=== PATIENT | female | born 1960 | race African-American/Black ===

== ENCOUNTER 2017-03-15 23:58 | Inpatient (IN) | payer OTHER, MEDICAID ==
[~2017-03-15] VITALS: Ht 160 cm; Wt 96.2 kg
[2017-03-16] MEDS ORDERED: ONDANSETRON HCL 4MG/2ML VIAL IV STA (00:43)
[2017-03-16] MEDS ORDERED: SODIUM CHLORIDE 0.9% 1,000 ML IV ONE (00:43)
[2017-03-16] MEDS ORDERED: LORAZEPAM 2MG/ML CPJ IV ONE (00:45)
[2017-03-16] MEDS ORDERED: LEVETIRACETAM 500MG PREMIX 100 ML IV ONE (00:45)
[2017-03-16 02:30] LABS: BASOPHILS % 0.5 % (0.0-2.0); EOSINOPHILS % 0.2 % (0.0-5.0); HEMOGLOBIN. 14.5 g/dL (12.0-16.0); LYMPHOCYTES % 16.9 % (20.0-50.0); MEAN CORPUSCULAR HEMOGLOBIN 27.6 pg (28.0-32.0); MEAN CORPUSCULAR VOLUME 84.1 fL (81.0-99.0); MONOCYTES % 3.5 % (2.0-8.0); NEUTROPHILS % 78.9 % (40.0-76.0); RED BLOOD CELL COUNT 5.24 mill/uL (4.2-5.4); RED CELL DISTRIBUTION WIDTH 17.5 % (11.6-14.6)
[2017-03-16 02:51] LABS: CARBON DIOXIDE 26 mEq/L (21-32); CHLORIDE 107 mEq/L (98-107); ETHANOL BLOOD < 10 mg/dL; TROPONIN I < 0.02 ng/mL (0.00-0.04)
[2017-03-16 03:07] LABS: MEAN PLATELET VOLUME 9.7 fl (7.4-10.4); PLATELET 218 x1000/uL (130-400)
[2017-03-16 04:00] LABS: BG BASE EXCESS -0.5 mmol/L (-2.0-2.0); BG CARBOXYHEMOGLOBIN 0.6 % (0.5-1.5); BG DEOXYHEMOGLOBIN 1.5 % (0.0-5.0); BG FRACTION INSPIRED OXYGEN 28; BG HCO3 ACT 24.1 mmol/L (22.0-26.0); BG METHEMOGLOBIN 0.3 % (0.0-1.5); BG OXYGEN SATURATION 98.5 % (92.0-98.5); BG OXYHEMOGLOBIN 97.6 % (94.0-97.0); BG PCO2 39.6 mmHg (35.0-45.0); BG PH 7.403 (7.350-7.450); BG PO2 118.6 mmHg (75.0-100.0); BG SAMPLE SITE LEFT RADIAL; BG TOTAL HEMOGLOBIN 14.3 g/dL (12.0-18.0); BG VENT MODE NASAL CANNULA
[2017-03-16 04:25] LABS: *AMPHETAMINES SCREEN URINE NEGATIVE (NEGATIVE); *BARBITURATES SCREEN URINE NEGATIVE (NEGATIVE); *BENZODIAZEPINES SCREEN URINE NEGATIVE (NEGATIVE); *COCAINE SCREEN URINE NEGATIVE (NEGATIVE); CANNABINOID URINE SCREEN NEGATIVE (NEGATIVE); METHADONE URINE SCREEN NEGATIVE (NEGATIVE); OPIATES URINE SCREEN NEGATIVE (NEGATIVE); PHENCYCLIDINE URINE SCREEN NEGATIVE (NEGATIVE)
[2017-03-16] MEDS ORDERED: SODIUM CHLORIDE 0.9% 1,000 ML IV SCH (05:43)
[2017-03-16] MEDS ORDERED: ACETAMINOPHEN 325MG TABLET PO PRN ×2 (05:45→12:45)
[2017-03-16] MEDS ORDERED: IBUPROFEN 600MG TABLET PO PRN (05:45)
[2017-03-16 09:15] VITALS: BP 134/86
[2017-03-16] MEDS ORDERED: BACL-141 PO (10:43)
[2017-03-16] MEDS ORDERED: OMEP20CA10 PO (10:43)
[2017-03-16] MEDS ORDERED: AMLO10TA80 PO (10:43)
[2017-03-16] MEDS ORDERED: HYDR12.54 PO (10:43)
[2017-03-16] MEDS ORDERED: ASPI-1159 PO (10:43)
[2017-03-16] MEDS ORDERED: HYDR-519 PO (10:43)
[2017-03-16] MEDS ORDERED: LAM15 PO (10:43)
[2017-03-16 12:00] VITALS: BP 138/74
[2017-03-16] MEDS ORDERED: CETI10TA6 PO (12:17)
[2017-03-16] MEDS ORDERED: ONDA4SOL2 PO (12:17)
[2017-03-16] MEDS ORDERED: TRIA1TAB94 PO (12:17)
[2017-03-16] MEDS ORDERED: IPRATROPIUM/ALBUTEROL 0.5-3(2.5)MG/3ML NEB INH PRN (12:45)
[2017-03-16] MEDS ORDERED: CLONIDINE 0.1MG TABLET PO PRN (12:45)
[2017-03-16] MEDS ORDERED: LORAZEPAM 2MG/ML CPJ IV PRN (12:45)
[2017-03-16] MEDS ORDERED: DIPHENHYDRAMINE 50MG/ML VIAL IV PRN (12:45)
[2017-03-16] MEDS ORDERED: ONDANSETRON HCL 4MG/2ML VIAL IV PRN (12:45)
[2017-03-16] MEDS ORDERED: ONDANSETRON HCL 4MG TABLET PO PRN (13:30)
[2017-03-16] MEDS ORDERED: ACETAMINOPHEN 650MG/20.3ML UDC PO PRN (13:30)
[2017-03-16] MEDS: CETIRIZINE 10MG TABLET PO SCH ×2 (13:30→17:06)
[2017-03-16] MEDS: TRIAMTERENE/HYDROCHLOROTHIAZIDE 37.5/25MG CAPSULE PO SCH (13:47)
[2017-03-16] MEDS: BACLOFEN 10MG TABLET PO SCH ×2 (13:47→21:14)
[2017-03-16] MEDS: AMLODIPINE 10MG TABLET PO SCH (13:47)
[2017-03-16] MEDS ORDERED: NON FORMULARY PATIENT HOME MED EA XX SCH ×2 (15:45→21:00)
[2017-03-16 16:00] VITALS: BP 140/77
[2017-03-16] MEDS: LACOSAMIDE 200 MG TABLET (VIMPAT) PO SCH (17:06)
[2017-03-16 20:00] VITALS: BP 161/80
[2017-03-16 20:19] LABS: CLARITY URINE CLOUDY (CLEAR); COLOR URINE YELLOW (YELLOW); GLUCOSE URINE NEGATIVE (NEGATIVE); KETONES URINE NEGATIVE (NEGATIVE); LEUKOCYTE ESTERASE URINE NEGATIVE (NEGATIVE); NITRITE URINE NEGATIVE (NEGATIVE); OCCULT BLOOD URINE NEGATIVE (NEGATIVE); PH URINE 5.5 (4.5-8.0); PROTEIN URINE NEGATIVE (NEGATIVE); SPECIFIC GRAVITY URINE 1.017 (1.005-1.030); UROBILINOGEN URINE 0.2 E.U./dL (0.2-1.0)
[2017-03-16] MEDS ORDERED: LEVETIRACETAM 500MG/5ML CUP PO SCH (21:00)
[2017-03-16] MEDS: LEVETIRACETAM 500MG/5ML CUP PO SCH (21:00)
[2017-03-16] MEDS ORDERED: LACOSAMIDE 200 MG TABLET (VIMPAT) PO NR (21:00)
[2017-03-17] VITALS: BP 121/74
[2017-03-17 04:00] VITALS: BP 135/65
[2017-03-17] MEDS: HYDROCODONE/ACETAMINOPHEN 5/325MG TABLET PO PRN ×2 (04:02→08:53)
[2017-03-17] MEDS: BACLOFEN 10MG TABLET PO SCH ×3 (06:10→22:15)
[2017-03-17] MEDS: HYDROCHLOROTHIAZIDE 25MG TABLET PO SCH (06:10)
[2017-03-17 06:18] LABS: BASOPHILS % 0.2 % (0.0-2.0); EOSINOPHILS % 1.2 % (0.0-5.0); HEMATOCRIT. 37.7 % (36.0-48.0); HEMOGLOBIN. 12.4 g/dL (12.0-16.0); LYMPHOCYTES % 29.1 % (20.0-50.0); MEAN CORPUSCULAR HEMOGLOBIN 27.4 pg (28.0-32.0); MEAN CORPUSCULAR VOLUME 83.5 fL (81.0-99.0); MEAN PLATELET VOLUME 9.4 fl (7.4-10.4); MONOCYTES % 7.8 % (2.0-8.0); NEUTROPHILS % 61.7 % (40.0-76.0); PLATELET 173 x1000/uL (130-400); RED BLOOD CELL COUNT 4.51 mill/uL (4.2-5.4); RED CELL DISTRIBUTION WIDTH 17.6 % (11.6-14.6)
[2017-03-17 06:40] LABS: CHLORIDE 102 mEq/L (98-107)
[2017-03-17 06:47] LABS: CARBON DIOXIDE 27 mEq/L (21-32); HDL CHOLESTEROL 42 mg/dL (40-59); LDL CHOLESTEROL 88 mg/dL (5-100)
[2017-03-17 08:00] VITALS: BP 148/58
[2017-03-17] MEDS: LACOSAMIDE 200 MG TABLET (VIMPAT) PO SCH ×2 (08:52→16:23)
[2017-03-17] MEDS: ASPIRIN 81MG EC TABLET PO SCH (09:00)
[2017-03-17] MEDS: AMLODIPINE 10MG TABLET PO SCH (09:00)
[2017-03-17] MEDS: LEVETIRACETAM 500MG/5ML CUP PO SCH ×2 (09:58→16:24)
[2017-03-17] MEDS: TRIAMTERENE/HYDROCHLOROTHIAZIDE 37.5/25MG CAPSULE PO SCH (10:00)
[2017-03-17 12:00] VITALS: BP 137/72
[2017-03-17 16:00] VITALS: BP 139/75
[2017-03-17 20:00] VITALS: BP 130/71
[2017-03-18] VITALS: BP 120/61
[2017-03-18 04:00] VITALS: BP 148/73
[2017-03-18] MEDS: HYDROCHLOROTHIAZIDE 25MG TABLET PO SCH (05:25)
[2017-03-18] MEDS: BACLOFEN 10MG TABLET PO SCH (05:25)
[2017-03-18 07:29] LABS: BASOPHILS % 0.5 % (0.0-2.0); HEMATOCRIT. 40.7 % (36.0-48.0); HEMOGLOBIN. 13.3 g/dL (12.0-16.0); LYMPHOCYTES % 51.8 % (20.0-50.0); MEAN CORPUSCULAR HEMOGLOBIN 27.1 pg (28.0-32.0); MEAN CORPUSCULAR VOLUME 83.2 fL (81.0-99.0); MEAN PLATELET VOLUME 9.8 fl (7.4-10.4); MONOCYTES % 6.6 % (2.0-8.0); NEUTROPHILS % 40.1 % (40.0-76.0); PLATELET 172 x1000/uL (130-400); RED CELL DISTRIBUTION WIDTH 17.5 % (11.6-14.6)
[2017-03-18 07:49] LABS: CARBON DIOXIDE 28 mEq/L (21-32); CHLORIDE 102 mEq/L (98-107)
[2017-03-18 08:00] VITALS: BP 108/74
[2017-03-18] MEDS: CETIRIZINE 10MG TABLET PO SCH (09:13)
[2017-03-18] MEDS: HYDROCODONE/ACETAMINOPHEN 5/325MG TABLET PO PRN (09:15)
[2017-03-18] MEDS: LACOSAMIDE 200 MG TABLET (VIMPAT) PO SCH (09:16)
[2017-03-18] MEDS: AMLODIPINE 10MG TABLET PO SCH (09:16)
[2017-03-18] MEDS: LEVETIRACETAM 500MG/5ML CUP PO SCH (09:17)
[2017-03-18] MEDS: ASPIRIN 81MG EC TABLET PO SCH (09:18)
[2017-03-18] MEDS: TRIAMTERENE/HYDROCHLOROTHIAZIDE 37.5/25MG CAPSULE PO SCH (09:23)
[2017-03-18 12:00] VITALS: BP 125/68
== END 2017-03-18 14:00 | disposition left against medical advice (07) | DRG 101 ==
LOC: ER 03-16 00:04 → 7WST 03-16 05:45 → EDBEDREQ 03-16 05:48 → EDBEDREQTM 03-16 05:48 → ENRESERV 03-16 06:43
PROVIDERS: ADMIT Internal Medicine; ATTEND Internal Medicine
DX: G40.409 Other generalized epilepsy and epileptic syndromes, not intractable, without status epilepticus (principal); I10 Essential (primary) hypertension; Z53.21 Procedure and treatment not carried out due to patient leaving prior to being seen by health care provider; Z86.73 Personal history of transient ischemic attack (TIA), and cerebral infarction without residual deficits; Z79.899 Other long term (current) drug therapy
CPT/HCPCS: 36415; 36600; 70450; 70551; 71010; 80048; 80053; 80061; 80185; 80305; 80339; 81001; 82375; 82805; 82962; 83605; 84484; 85025; 87040; 87086; 93005; 96361; 96374; 96375; 99291; G0482; J1953; J2060; J2405; J7030; Q0162

== ENCOUNTER 2018-07-08 14:26 | Inpatient (IN) | payer MEDICAID, OTHER ==
[~2018-07-08] VITALS: Ht 157.5 cm; Wt 109.0 kg
[~2018-07-08 14:26] MED LIST: AMLO10TA80 PO; ASPI-1159 PO; BACL-141 PO; CETI10TA6 PO; HYDR-519 PO; HYDR12.54 PO; LAM15 PO; ONDA4SOL2 PO; TRIA1TAB94 PO
[2018-07-08] MEDS ORDERED: SODIUM CHLORIDE 0.9% 1,000 ML IV ONE (14:46)
[2018-07-08] MEDS ORDERED: LORAZEPAM 2MG/ML CPJ IV ONE (15:00)
[2018-07-08 16:10] LABS: BASOPHILS % 0.4 % (0.0-2.0); EOSINOPHILS % 0.8 % (0.0-5.0); HEMATOCRIT. 41.1 % (36.0-48.0); HEMOGLOBIN. 13.2 g/dL (12.0-16.0); MEAN CORPUSCULAR HEMOGLOBIN 26.8 pg (28.0-32.0); MEAN CORPUSCULAR VOLUME 83.4 fL (81.0-99.0); MEAN PLATELET VOLUME 10.4 fl (7.4-10.4); MONOCYTES % 4.3 % (2.0-8.0); NEUTROPHILS % 70.5 % (40.0-76.0); PLATELET 204 x1000/uL (130-400); RED BLOOD CELL COUNT 4.93 mill/uL (4.2-5.4); RED CELL DISTRIBUTION WIDTH 17.7 % (11.6-14.6)
[2018-07-08 16:14] LABS: CHLORIDE 105 mEq/L (98-107)
[2018-07-08 16:22] LABS: ETHANOL BLOOD < 10 mg/dL
[2018-07-08 16:44] LABS: CARBAMAZEPINE < 0.5 ug/mL (4-12); PHENOBARBITAL < 2.1 ug/mL (15.0-40.0)
[2018-07-08] MEDS ORDERED: LEVETIRACETAM 500MG PREMIX 100 ML IV ONE (18:00)
[2018-07-08] MEDS ORDERED: LORAZEPAM 2MG/ML CPJ IV PRN (19:15)
[2018-07-08] MEDS ORDERED: ACETAMINOPHEN 650MG SUPP PR PRN (19:15)
[2018-07-08] MEDS ORDERED: ONDANSETRON HCL 4MG/2ML INJ IV PRN (19:15)
[2018-07-08 22:00] VITALS: BP 152/79
[2018-07-08] MEDS: DEXT 5%/0.45% NACL 1000ML 1,000 ML IV SCH (23:30)
[2018-07-09] VITALS (8 sets, daily range): BP systolic 134–188; BP diastolic 48–77
[2018-07-09] MEDS: HYDRALAZINE 20MG/ML VIAL IV PRN ×2 (05:13→20:57)
[2018-07-09 07:15] LABS: CHLORIDE 108 mEq/L (98-107)
[2018-07-09 07:29] LABS: BASOPHILS % 0.4 % (0.0-2.0); EOSINOPHILS % 1.3 % (0.0-5.0); HEMATOCRIT. 37.6 % (36.0-48.0); HEMOGLOBIN. 12.1 g/dL (12.0-16.0); LYMPHOCYTES % 40.6 % (20.0-50.0); MEAN CORPUSCULAR HEMOGLOBIN 26.9 pg (28.0-32.0); MEAN CORPUSCULAR VOLUME 83.7 fL (81.0-99.0); MEAN PLATELET VOLUME 10.3 fl (7.4-10.4); MONOCYTES % 7.2 % (2.0-8.0); NEUTROPHILS % 50.5 % (40.0-76.0); PLATELET 185 x1000/uL (130-400); RED BLOOD CELL COUNT 4.49 mill/uL (4.2-5.4); RED CELL DISTRIBUTION WIDTH 17.3 % (11.6-14.6)
[2018-07-09 07:32] LABS: T4 FREE 1.11 ng/dL (0.76-1.46)
[2018-07-09] MEDS: DEXT 5%/0.45% NACL 1000ML 1,000 ML IV SCH (08:38)
[2018-07-09] MEDS ORDERED: HYDROCHLOROTHIAZIDE 25MG TABLET PO SCH (10:15)
[2018-07-09] MEDS ORDERED: ASPIRIN 81MG EC TABLET PO SCH (10:15)
[2018-07-09] MEDS ORDERED: BACLOFEN 10MG TABLET PO PRN (10:15)
[2018-07-09] MEDS ORDERED: AMLODIPINE 10MG TABLET PO SCH (10:15)
[2018-07-09] MEDS ORDERED: LAMOTRIGINE 150MG TABLET PO SCH (17:00)
[2018-07-09 17:19] LABS: CLARITY URINE CLEAR (CLEAR); COLOR URINE YELLOW (YELLOW); KETONES URINE NEGATIVE (NEGATIVE); LEUKOCYTE ESTERASE URINE NEGATIVE (NEGATIVE); NITRITE URINE NEGATIVE (NEGATIVE); OCCULT BLOOD URINE NEGATIVE (NEGATIVE); PH URINE 7.5 (4.5-8.0); PROTEIN URINE NEGATIVE (NEGATIVE); SPECIFIC GRAVITY URINE 1.011 (1.005-1.030); UROBILINOGEN URINE 0.2 E.U./dL (0.2-1.0)
[2018-07-09 17:46] LABS: *BARBITURATES SCREEN URINE NEGATIVE (NEGATIVE); *BENZODIAZEPINES SCREEN URINE NEGATIVE (NEGATIVE); *COCAINE SCREEN URINE NEGATIVE (NEGATIVE)
[2018-07-09 17:47] LABS: *AMPHETAMINES SCREEN URINE NEGATIVE (NEGATIVE); CANNABINOID URINE SCREEN NEGATIVE (NEGATIVE); METHADONE URINE SCREEN NEGATIVE (NEGATIVE); OPIATES URINE SCREEN NEGATIVE (NEGATIVE); PHENCYCLIDINE URINE SCREEN NEGATIVE (NEGATIVE)
[2018-07-09] MEDS ORDERED: ACETAMINOPHEN 325MG TABLET PO PRN (21:30)
[2018-07-09] MEDS ORDERED: MAGNESIUM/ALUMINUM HYDROXIDE/SIMETHICONE 30ML UDC PO SCH (21:30)
[2018-07-09] MEDS ORDERED: MAGNESIUM/ALUMINUM HYDROXIDE/SIMETHICONE 30ML UDC PO NR (22:00)
[2018-07-10] VITALS: BP 154/72
== END 2018-07-10 00:28 | disposition short-term general hospital (02) | DRG 53 ==
LOC: ER 14:26 → 7WST 18:29 → SUPCPDRO 19:08 → ENRESERV 20:40
PROVIDERS: ADMIT Hospitalist; ATTEND Hospitalist
DX: G40.909 Epilepsy, unspecified, not intractable, without status epilepticus (principal); I10 Essential (primary) hypertension; R32 Unspecified urinary incontinence; Z86.73 Personal history of transient ischemic attack (TIA), and cerebral infarction without residual deficits; Z88.8 Allergy status to other drugs, medicaments and biological substances; Z88.4 Allergy status to anesthetic agent; Z88.0 Allergy status to penicillin
CPT/HCPCS: 36415; 70551; 71045; 80156; 80165; 80184; 80185; 80305; 82140; 82962; 83735; 84439; 84443; 84484; 93005; 93970; 96361; 96365; 96375; 99285; C1893; G0482; J0360; J1953; J2060; J7030

== ENCOUNTER 2019-03-06 22:26 | Inpatient (IN) | payer MEDICAID, OTHER ==
[~2019-03-06] VITALS: Ht 157.5 cm; Wt 104.3 kg
[~2019-03-06 22:26] MED LIST changes: -ASPI-1159 PO; +ASPI-1393 PO
[2019-03-06 23:42] LABS: BASOPHILS % 0.8 % (0.0-2.0); CHLORIDE 113 mEq/L (98-107); EOSINOPHILS % 1.7 % (0.0-5.0); HEMATOCRIT. 38.8 % (36.0-48.0); HEMOGLOBIN. 12.4 g/dL (12.0-16.0); LYMPHOCYTES % 44.7 % (20.0-50.0); MEAN CORPUSCULAR HEMOGLOBIN 27.1 pg (28.0-32.0); MEAN CORPUSCULAR VOLUME 84.6 fL (81.0-99.0); MEAN PLATELET VOLUME 9.7 fl (7.4-10.4); MONOCYTES % 5.6 % (2.0-8.0); NEUTROPHILS % 47.2 % (40.0-76.0); PLATELET 186 x1000/uL (130-400); RED BLOOD CELL COUNT 4.59 mill/uL (4.2-5.4); RED CELL DISTRIBUTION WIDTH 18.3 % (11.6-14.6)
[2019-03-07] MEDS ORDERED: IPRATROPIUM/ALBUTEROL 0.5-3(2.5)MG/3ML NEB HHN PRN (07:45)
[2019-03-07] MEDS ORDERED: HYDROCODONE/ACETAMINOPHEN 5/325MG TABLET PO PRN (07:45)
[2019-03-07] MEDS ORDERED: NON FORMULARY PATIENT HOME MED XX SCH (07:45)
[2019-03-07] MEDS ORDERED: ONDANSETRON HCL 4MG/2ML INJ IV PRN (07:45)
[2019-03-07] MEDS ORDERED: ACETAMINOPHEN 325MG TABLET PO PRN (07:45)
[2019-03-07] MEDS ORDERED: LORAZEPAM 0.5MG TABLET PO PRN (07:45)
[2019-03-07] MEDS ORDERED: DOCUSATE SODIUM 100MG CAPSULE PO PRN (07:45)
[2019-03-07] MEDS ORDERED: CLONIDINE 0.1MG TABLET PO PRN (07:45)
[2019-03-07] MEDS ORDERED: LAMOTRIGINE 100MG TABLET PO SCH (09:00)
[2019-03-07 09:30] VITALS: BP 129/48
[2019-03-07 10:00] VITALS: BP 129/48
[2019-03-07] MEDS ORDERED: GABAPENTIN 300MG CAPSULE PO SCH (10:02)
[2019-03-07] MEDS ORDERED: GUAIFENESIN-DM 200MG-20MG/10ML UDC PO PRN (10:30)
[2019-03-07] MEDS ORDERED: LACOSAMIDE 200 MG TABLET (VIMPAT) PO SCH (11:00)
[2019-03-07 12:00] VITALS: BP 137/56
[2019-03-07 12:26] VITALS: BP 129/48
[2019-03-07 15:45] LABS: *AMPHETAMINES SCREEN URINE NEGATIVE (NEGATIVE); *BARBITURATES SCREEN URINE NEGATIVE (NEGATIVE); *BENZODIAZEPINES SCREEN URINE NEGATIVE (NEGATIVE); *COCAINE SCREEN URINE NEGATIVE (NEGATIVE); METHADONE URINE SCREEN NEGATIVE (NEGATIVE)
[2019-03-07 15:46] LABS: CANNABINOID URINE SCREEN NEGATIVE (NEGATIVE); OPIATES URINE SCREEN NEGATIVE (NEGATIVE); PHENCYCLIDINE URINE SCREEN NEGATIVE (NEGATIVE)
[2019-03-07] MEDS ORDERED: TOPIRAMATE 25MG TABLET PO SCH (21:00)
== END 2019-03-07 14:03 | disposition home or self-care (01) | DRG 53 ==
LOC: ER 22:39 → 6WST 03-07 01:34 → EDBEDREQDT 03-07 01:37 → EDBEDREQTM 03-07 01:37 → EDBEDREQ 03-07 01:37 → ENRESERV 03-07 07:01 → 6WST 03-07 09:32
PROVIDERS: ADMIT Internal Medicine; ATTEND Internal Medicine
DX: G40.409 Other generalized epilepsy and epileptic syndromes, not intractable, without status epilepticus (principal); E87.8 Other disorders of electrolyte and fluid balance, not elsewhere classified; I10 Essential (primary) hypertension; Z86.73 Personal history of transient ischemic attack (TIA), and cerebral infarction without residual deficits; Z91.19 Patient's noncompliance with other medical treatment and regimen; Z79.82 Long term (current) use of aspirin; Z79.899 Other long term (current) drug therapy; Z88.0 Allergy status to penicillin; Z88.8 Allergy status to other drugs, medicaments and biological substances
CPT/HCPCS: 36415; 71045; 80305; 80339; 93005; 99285